=== PATIENT | female | born 2000 | race Caucasian/White ===

== ENCOUNTER 2020-07-30 04:34 | Inpatient (IN) | payer OTHER ==
[~2020-07-30] VITALS: Ht 165.1 cm; Wt 80.3 kg
[2020-07-30] VITALS (68 sets, daily range): BP systolic 78–156; BP diastolic 7–85
[~2020-07-30 04:34] MED LIST: IBUPROFEN 400400 M2 PO; IBUPROFEN 800800 M1 PO; MELATONIN3 MG PO; ZYRTEC10 MG PO
[2020-07-30 05:16] LABS: HEMATOCRIT 56.2 % (37.0-47.0); HEMOGLOBIN 18.2 gm/dL (12.0-15.0); MCH 27.2 pg (26.0-34.0); MCHC 32.4 g/dL (28.0-37.0); MCV 83.7 fL (80.0-100.0); MPV 9.8 fl. (7.2-11.1); NUCLEATED RBCS 0 /100WBC; PLATELET COUNT* 435 thou/uL (150-400); RBC 6.71 mil/uL (4.20-5.00); WBC 26.7 thou/uL (4.0-11.0)
[2020-07-30 05:24] LABS: BUN 19 mg/dL (7-18); CALCIUM 11.2 mg/dL (8.5-10.1); CHLORIDE 90 mmol/L (98-107); CREATININE 1.7 mg/dL (0.6-1.3); POTASSIUM 3.9 mmol/L (3.5-5.1); SODIUM 127 mmol/L (136-145)
[2020-07-30 05:25] LABS: ALBUMIN 4.4 g/dL (3.4-5.0); ALKALINE PHOSPHATASE 163 U/L (46-116); SGOT 12 U/L (15-37); SGPT 21 U/L (30-65); TOTAL BILIRUBIN 0.5 mg/dL (<0.1-1.0); TOTAL PROTEIN 9.2 g/dL (6.4-8.2)
[2020-07-30 05:26] LABS: ANION GAP 32 mmol/L (7-16)
[2020-07-30 05:27] LABS: CO2 < 5 mmol/L (21-32); GLUCOSE 681 mg/dL (70-99)
[2020-07-30 05:27] LABS: INFLUENZA A ANTIGEN Negative (Negative); INFLUENZA B ANTIGEN Negative (Negative)
[2020-07-30 05:29] LABS: BE -28.1 mmol/L (-2 to +3)
[2020-07-30 05:30] LABS: pH 6.955 (7.340-7.450)
[2020-07-30 05:31] LABS: PCO2 < 17.0 mmHg (35.0-45.0)
[2020-07-30 07:10] LABS: ABSOLUTE LYMPHOCYTES 1.9 thou/uL (0.8-5.3); ABSOLUTE MONOCYTES 2.1 thou/uL (0.0-1.2); ABSOLUTE NEUTROPHILS 22.7 thou/uL (1.6-8.1); ANISOCYTOSIS 1+; PLATELET ESTIMATE INCREASED; POIKILOCYTOSIS 1+
[2020-07-30 07:15] LABS: URINE BILIRUBIN NEGATIVE (Negative); URINE BLOOD 2+ (Negative); URINE CLARITY CLEAR; URINE COLOR YELLOW; URINE GLUCOSE-RANDOM 2+ (Negative); URINE KETONES 3+ (Negative); URINE LEUKOCYTES-REFLEX NEGATIVE (Negative); URINE NITRITE-REFLEX NEGATIVE (Negative); URINE PROTEIN 1+ (Negative); URINE SPECIFIC GRAVITY >= 1.030 (1.005-1.030); URINE UROBILINOGEN 0.2 E.U./dl (0.2-1.0)
[2020-07-30 07:28] LABS: SQUAMOUS 4-10 Moderate /LPF (0-3); URINE WBC-REFLEX 0-5 Rare /HPF (0-5)
[2020-07-30 07:29] LABS: BACTERIA-REFLEX 1-9 Few /HPF (None Seen); CASTS None Seen /LPF (None Seen); CRYSTALS None Seen /LPF (None Seen); MUCUS 0-3 Light strn/LPF (None Seen); URINE RBC 3-10 Few /HPF (0-2)
[2020-07-30 09:30] LABS: BE -26.6 mmol/L (-2 to +3)
[2020-07-30 09:35] LABS: PCO2 < 17.0 mmHg (35.0-45.0); PO2 268.8 mmHg (75.0-100.0); pH 6.991 (7.340-7.450)
[2020-07-30 09:51] LABS: ALBUMIN 2.8 g/dL (3.4-5.0); CALCIUM 10.2 mg/dL (8.5-10.1); CREATININE 1.3 mg/dL (0.6-1.3); MAGNESIUM 2.1 mg/dL (1.8-2.4); PHOSPHORUS* 2.4 mg/dL (2.5-4.9)
[2020-07-30 09:53] LABS: POTASSIUM 2.6 mmol/L (3.5-5.1)
[2020-07-30 13:07] LABS: CALCIUM 9.3 mg/dL (8.5-10.1); CREATININE 1.3 mg/dL (0.6-1.3)
[2020-07-30 13:10] LABS: ALBUMIN 2.7 g/dL (3.4-5.0); MAGNESIUM 1.8 mg/dL (1.8-2.4); PHOSPHORUS* 0.6 mg/dL (2.5-4.9)
[2020-07-30 13:15] LABS: POTASSIUM 2.5 mmol/L (3.5-5.1)
[2020-07-30 14:39] LABS: ABSOLUTE BASOPHILS 0.2 thou/uL (0.0-0.2); ABSOLUTE LYMPHOCYTES 1.7 thou/uL (0.8-5.3); ABSOLUTE MONOCYTES 3.6 thou/uL (0.0-1.2); ABSOLUTE NEUTROPHILS 26.5 thou/uL (1.6-8.1); BASOPHILS 0.8 %; EOSINOPHILS 0.1 %; HEMATOCRIT 47.2 % (37.0-47.0); LYMPHOCYTES 5.3 %; MCH 27.3 pg (26.0-34.0); MCHC 32.7 g/dL (28.0-37.0); MCV 83.4 fL (80.0-100.0); MONOCYTES 11.4 %; MPV 10.4 fl. (7.2-11.1); NUCLEATED RBCS 0 /100WBC; POLYS 82.4 %; RBC 5.66 mil/uL (4.20-5.00); RDW-CV 15.1 % (10.5-14.5)
[2020-07-30 14:44] LABS: HEMOGLOBIN 15.5 gm/dL (12.0-15.0)
[2020-07-30 14:45] LABS: PLATELET COUNT* 342 thou/uL (150-400)
[2020-07-30 16:21] LABS: PCO2 22.5 mmHg (35.0-45.0); pH 7.312 (7.340-7.450)
[2020-07-30 16:23] LABS: PO2 195.6 mmHg (75.0-100.0)
[2020-07-30 17:23] LABS: CALCIUM 9.2 mg/dL (8.5-10.1); CREATININE 1.4 mg/dL (0.6-1.3); POTASSIUM 3.4 mmol/L (3.5-5.1)
[2020-07-30 17:26] LABS: ALBUMIN 2.4 g/dL (3.4-5.0); MAGNESIUM 1.6 mg/dL (1.8-2.4); PHOSPHORUS* 0.5 mg/dL (2.5-4.9)
[2020-07-30 21:29] LABS: ALBUMIN 2.2 g/dL (3.4-5.0); CALCIUM 9.2 mg/dL (8.5-10.1); CREATININE 1.4 mg/dL (0.6-1.3); MAGNESIUM 2.1 mg/dL (1.8-2.4); PHOSPHORUS* 0.5 mg/dL (2.5-4.9); POTASSIUM 3.4 mmol/L (3.5-5.1)
[2020-07-31] VITALS (63 sets, daily range): BP systolic 88–120; BP diastolic 38–78
[2020-07-31 02:05] LABS: ALBUMIN 2.3 g/dL (3.4-5.0); ANION GAP 13 mmol/L (7-16); BUN 13 mg/dL (7-18); CALCIUM 9.5 mg/dL (8.5-10.1); CHLORIDE 112 mmol/L (98-107); CO2 17 mmol/L (21-32); CREATININE 1.2 mg/dL (0.6-1.3); GLUCOSE 169 mg/dL (70-99); MAGNESIUM 1.9 mg/dL (1.8-2.4); PHOSPHORUS* < 0.5 mg/dL (2.5-4.9); POTASSIUM 3.1 mmol/L (3.5-5.1); SODIUM 142 mmol/L (136-145)
[2020-07-31 05:50] LABS: ALBUMIN 2.2 g/dL (3.4-5.0); CALCIUM 8.9 mg/dL (8.5-10.1); CREATININE 1.1 mg/dL (0.6-1.3); MAGNESIUM 1.9 mg/dL (1.8-2.4); PHOSPHORUS* 0.5 mg/dL (2.5-4.9); POTASSIUM 3.8 mmol/L (3.5-5.1)
[2020-07-31 09:06] LABS: URINE BILIRUBIN NEGATIVE (Negative); URINE BLOOD 1+ (Negative); URINE CLARITY CLEAR; URINE COLOR STRAW; URINE GLUCOSE-RANDOM NEGATIVE (Negative); URINE KETONES NEGATIVE (Negative); URINE LEUKOCYTES-REFLEX TRACE (Negative); URINE NITRITE-REFLEX NEGATIVE (Negative); URINE PROTEIN TRACE (Negative); URINE SPECIFIC GRAVITY 1.015 (1.005-1.030); URINE UROBILINOGEN 0.2 E.U./dl (0.2-1.0)
[2020-07-31 09:16] LABS: CASTS None Seen /LPF (None Seen); SQUAMOUS >10 Many /LPF (0-3)
[2020-07-31 09:17] LABS: BACTERIA-REFLEX 1-9 Few /HPF (None Seen); CRYSTALS None Seen /LPF (None Seen); URINE RBC 0-2 Rare /HPF (0-2); URINE WBC-REFLEX 6-15 Few /HPF (0-5)
[2020-07-31 12:42] LABS: CALCIUM 8.9 mg/dL (8.5-10.1); MAGNESIUM 1.8 mg/dL (1.8-2.4); PHOSPHORUS* 0.9 mg/dL (2.5-4.9); POTASSIUM 3.8 mmol/L (3.5-5.1)
[2020-08-01] VITALS (10 sets, daily range): BP systolic 106–122; BP diastolic 59–86
[2020-08-01 04:06] LABS: GLYCOHEMOGLOBIN (HGB A1C) 13.6 % (4.8-5.6)
[2020-08-01 05:54] LABS: BASOPHILS 0.2 %; EOSINOPHILS 0.4 %; LYMPHOCYTES 10.6 %; MCHC 35.1 g/dL (28.0-37.0); MCV 79.8 fL (80.0-100.0); MONOCYTES 13.6 %; MPV 8.9 fl. (7.2-11.1); NUCLEATED RBCS 0 /100WBC; POLYS 75.2 %; RBC 3.76 mil/uL (4.20-5.00); RDW-CV 15.6 % (10.5-14.5)
[2020-08-01 05:56] LABS: ABSOLUTE LYMPHOCYTES 0.9 thou/uL (0.8-5.3); ABSOLUTE MONOCYTES 1.2 thou/uL (0.0-1.2); ABSOLUTE NEUTROPHILS 6.5 thou/uL (1.6-8.1); HEMOGLOBIN 10.6 gm/dL (12.0-15.0); PLATELET COUNT* 124 thou/uL (150-400); WBC 8.6 thou/uL (4.0-11.0)
[2020-08-01 06:01] LABS: CALCIUM 8.8 mg/dL (8.5-10.1); CREATININE 0.9 mg/dL (0.6-1.3); MAGNESIUM 1.7 mg/dL (1.8-2.4); PHOSPHORUS* 2.7 mg/dL (2.5-4.9)
[2020-08-01 06:02] LABS: POTASSIUM 2.9 mmol/L (3.5-5.1)
[2020-08-01 13:11] LABS: CALCIUM 9.2 mg/dL (8.5-10.1); CREATININE 0.9 mg/dL (0.6-1.3)
[2020-08-01 13:12] LABS: POTASSIUM 2.7 mmol/L (3.5-5.1)
--- NOTE | 2020-08-01 17:29 | EKG ---
[place] [address] ELECTROCARDIOGRAM REPORT Name: PAGE ANN Room: [address] IN M.R.#: [id number] Admission: 07/30/20 Attend Phys: Christiane Brand, Discharge: Date of : 89 Date of Service: 07/30/20 0506 Report #: [id number] THIS REPORT FOR: //name// [facility] ED Test Date: 2020-07-30 Test Time: 05:06:08 Pat Name: PAGEKimberly ANN Department: Room: [address] Gender: F [facility]: MR : [id number] Requested By: Brenda Banks Order Number: [id number] MD: Lucas Malcolm Measurements Intervals [place] Rate: 135 P: 70 MA: 113 QRS: -4 QRSD: 140 T: 28 QT: 359 QTc: 539 Interpretive Statements Sinus tachycardia Atrial premature complex Probable left ventricular hypertrophy Prolonged QT interval Baseline wander in lead(s) II,III,aVR,aVL,aVF,V1,V2,V3,V4,V5,V6 No previous ECG available for comparison Electronically Signed On 08-01-2020 17:28:47 CDT by Lucas Malcolm [email or web address] <ELECTRONICALLY SIGNED> By: Lucas Malcolm MD, [facility] 08/01/20 1728 0506 0506 Lucas Malcolm MD, [facility] /EPI
[2020-08-02 04:31] LABS: CALCIUM 8.6 mg/dL (8.5-10.1); CREATININE 0.7 mg/dL (0.6-1.3); POTASSIUM 3.6 mmol/L (3.5-5.1)
[2020-08-02 04:35] LABS: HEMOGLOBIN 11.1 gm/dL (12.0-15.0); MCH 27.9 pg (26.0-34.0); MCHC 34.7 g/dL (28.0-37.0); MCV 80.5 fL (80.0-100.0); RBC 3.98 mil/uL (4.20-5.00); RDW-CV 15.8 % (10.5-14.5); WBC 10.2 thou/uL (4.0-11.0)
[2020-08-02] MEDS ORDERED: LANTUS100 UNIT/M SUBQ (06:59)
[2020-08-02] MEDS ORDERED: HUMALOG100 UNIT/1 SUBQ (06:59)
[2020-08-02 08:00] VITALS: BP 110/56
[2020-08-02] MEDS ORDERED: CEFDINIR300 MG PO (08:42)
[2020-08-02 09:06] VITALS: BP 122/79
[2020-08-02 09:15] VITALS: BP 122/79
[2020-08-02 11:30] VITALS: BP 109/69
[2020-08-02 15:12] VITALS: BP 122/79
[2020-08-02 17:10] VITALS: BP 122/79
== END 2020-08-02 17:00 | disposition home or self-care (01) | DRG 637 ==
LOC: M.ERS 04:34 → M.TBA-ER 06:51 → M.ICU 08:47 → M.2W 08-01 21:30
PROVIDERS: Family Medicine; Internal Medicine; Internal Medicine Pulmonary Disease; Personal Emergency Response Attendant; ADMIT Internal Medicine; ATTEND Internal Medicine
PROC: 0BH17EZ Insertion of Endotracheal Airway into Trachea, Via Natural or Artificial Opening (ICD-10-PCS; principal; 2020-07-30)
PROC: 5A1935Z Respiratory Ventilation, Less than 24 Consecutive Hours (ICD-10-PCS; principal; 2020-07-30)
DX: E10.10 Type 1 diabetes mellitus with ketoacidosis without coma (principal); N17.0 Acute kidney failure with tubular necrosis; J96.01 Acute respiratory failure with hypoxia; J69.0 Pneumonitis due to inhalation of food and vomit; R65.10 Systemic inflammatory response syndrome (SIRS) of non-infectious origin without acute organ dysfunction; E87.1 Hypo-osmolality and hyponatremia; E86.9 Volume depletion, unspecified; E87.6 Hypokalemia; R74.01 Elevation of levels of liver transaminase levels; Z20.822 Contact with and (suspected) exposure to COVID-19; Z79.899 Other long term (current) drug therapy; Z88.1 Allergy status to other antibiotic agents; Z88.2 Allergy status to sulfonamides; Z88.8 Allergy status to other drugs, medicaments and biological substances